=== PATIENT | female | born 1985 | race Asian ===

== ENCOUNTER → 2018-08-24 | Outpatient (CLI) | payer OTHER ==
--- NOTE | 2018-08-24 11:00 | RAD ---
EXAM: Obstetrics sonogram. HISTORY: Supervision of normal . Uncertain dates. TECHNIQUE: Sonographic imaging of a gravid uterus was performed. COMPARISON: None. FINDINGS: There is a single intrauterine fetus in cephalic presentation with a heart rate of 149 bpm. The cervix is closed and measures 4.5 cm in length. There is an anterior placenta without evidence of placenta previa. The stomach, kidneys, bladder, spine, brain and heart are unremarkable. There is a three-vessel umbilical cord with normal insertion. The amniotic fluid index is normal 11.8 cm. The biparietal diameter is 5.45 cm, corresponding with 22 weeks and 4 days. The head circumference is 19.47 cm, corresponding with 21 weeks and 5 days. The abdominal circumference is 17.25 cm, corresponding with 20 weeks and 1 day. The femoral length is 3.66 cm, corresponding with 21 weeks and 4 days. The estimated gestational age patient combined ultrasound measurements is 22 weeks and 0 days and the estimated due date is 01/07/2019. The estimated weight is 464 g. This corresponds with the 8th percentile for an estimated gestational age based on LMP of 25 weeks and 0 days days. IMPRESSION: Single intrauterine fetus in cephalic presentation with a heart rate of 149 bpm. The estimated gestational age based on ultrasound measurements is 22 weeks and 0 days. The estimated weight corresponds with the 8th percentile for an estimated gestational age based on LMP of 25 weeks and 0 days. Electronically signed by: Jacqueline Velasco MD (08/24/2018 10:57 AM) [id number]
== END | disposition home or self-care (01) ==
LOC: US 09:45
PROVIDERS: ATTEND Family Medicine
DX: Z34.92 Encounter for supervision of normal pregnancy, unspecified, second trimester (principal); Z3A.25 25 weeks gestation of pregnancy
CPT/HCPCS: 76805